=== PATIENT | female | born 1970 | race Caucasian/White ===

== ENCOUNTER 2019-07-23 09:49 | Emergency (ER) | payer MEDICAID, SELFPAY ==
--- NOTE | 2019-07-23 09:45 | DI.RAD_ITS ---
EXAM: XR CERVICAL SP LOVETT TRAUMA 2-3V CLINICAL HISTORY: Neck pain. TECHNIQUE: 2D digital imaging was performed. COMPARISON: No exams were available for comparison FINDINGS: BONES: No fracture or destructive lesion. Vertebral bodies are unremarkable. There are mild facet degenerative changes greatest at C6-7 and C7-T1. DISKS: Intervertebral disc spaces are maintained. ALIGNMENT: Cervical spinal alignment is within normal limits. The odontoid and atlantoaxial articulat ions are normal. SOFT TISSUE: Normal. The lung apices are clear. IMPRESSION: Mild degenerative changes. DATA REPOSITORY: RADIATION DOSE DELIVERED:
[2019-07-23 09:47] VITALS: BP 142/107; PULSE 94; RESP 20; TEMP 36.6; O2SAT 97
--- NOTE | 2019-07-23 09:57 | ED.GENADUL_ITS ---
Discharge Plan Disposition Patient Disposition: HOME Condition: Stable Discharge Details Chief Complaint: Nk/Back Pain Clinical Impression: Torticollis Primary Care Provider: Lilli Vaughn ED Provider: Naima Horton Home Meds and New Rx's Prescriptions: New baclofen 5 mg tablet 5 mg PO TID PRN (Reason: muscle spasm) Qty: 10 RF: 0 No Action ropinirole 12 mg Tablet Extended Release 24 Hr 12 mg PO .QHS RF: 0 Discharge Instructions Instructions: Spasmodic Torticollis (ED) Additional Instructions: Follow up with primary care provider in 3-5 days. Return to ED sooner if any worsening or concerns. Increase oral fluids. Apply ice, heat try massage and muscle relaxers as directed. You may take Tylenol or ibuprofen every 4-6 hours as needed. Referrals: Lilli Vaughn [Primary Care Provider] - Medical Decision Making 41-year-old female presents with left-sided lateral paraspinous neck tenderness. There is muscle spasm noted and pain with palpation. No midline tenderness. X-rays obtained which show degenerative changes in C6 and 7. Patient received ibuprofen 600 mg and Flexeril 10 mg p.o. in department. Also trans-dermal lidocaine patch was applied. Patient will be discharged with a diagnosis of torticollis at this time strict return instructions given and home care given. CLINICAL HISTORY: Neck pain. TECHNIQUE: 2D digital imaging was performed. COMPARISON: No exams were available for comparison FINDINGS: BONES: No fracture or destructive lesion. Vertebral bodies are unremarkable. There are mild facet degenerative changes greatest at C6-7 and C7-T1. DISKS: Intervertebral disc spaces are maintained. ALIGNMENT: Cervical spinal alignment is within normal limits. The odontoid and atlantoaxial articulations are normal. SOFT TISSUE: Normal. The lung apices are clear. IMPRESSION: Mild degenerative changes. HPI General Mode of arrival: EMS . Date/Time Provider Initiated Documentation: 07/23/19 09:51 . Limitations to Documentation: no limitations . Information obtained by: patient . HPI Narrative: 49-year-old female presents with left lateral posterior neck pain which occurred upon waking this morning. Patient is unable to turn her head to the left she does have tenderness to palpation on the lateral paraspinous. No midline cervical tenderness. Denies any trauma or falls. Denies any nausea vomiting diarrhea, no cough no chest pain. Related Data Home Medications Medication Instructions Recorded Confirmed baclofen 5 mg PO TID PRN #10 tab 07/23/19 ropinirole 12 mg PO .QHS 07/23/19 07/23/19 Previous Rx's Medication Instructions Recorded baclofen 5 mg PO TID PRN #10 tab 07/23/19 Allergies Allergy/AdvReac Type Severity Reaction Status Date / Time acetaminophen [From Percocet] AdvReac Nausea Unverified 07/23/19 09:52 ketorolac [From Toradol] AdvReac Nausea Unverified 07/23/19 09:52 oxycodone [From Percocet] AdvReac Nausea Unverified 07/23/19 09:52 General Stated Complaint: Nk/Back Pain ARON: 3 Review of Systems Narrative: Constitutional: Negative for weight loss, alert and oriented, well groomed, normal body habitus, appears uncomfortable. HEENT: Denies trauma, headaches, blurry vision, nasal discharge, sore throat, trouble swallowing. Reports lateral neck pain. Chest: Denies chest pain, palpitations, irregular rhythm, hypertension. Respiratory: Denies Shortness of breath, cough, hemoptysis. GI: Denies abdominal pain, nausea, vomiting, diarrhea, constipation. : Denies dysuria, hematuria, flank pain, rectal bleeding. Neuro: Denies dizziness, blurry vision, weakness, syncope, headache or facial numbness. Hematologic: Denies easy bruising, intolerance to heat or cold, hair loss. [facility] Social History Smoking/Tobacco Use Status: Current every day Tobacco Type: cigarettes Alcohol Intake: never Substance use type: does not use Exam Narrative Exam Narrative: Constitutional: Alert and oriented x3. Appears stated age. Normal body habitus. Head: Normocephalic, no trauma. Eyes: Pupils PERRLA, Red reflex noted, EOM's intact. Eyelids symmetrical without lesions, discharge, or swelling. ENT: Bilateral TM's WNL, External ear normal to inspection, no mastoid TTP, swelling, or erythema, Nasal turbinates WNL, no nasal discharge. Normal dentition, Posterior pharynx WNL, no exudate. Chest: RRR, Normal S1, S2, distal pulses intact. Resp: Lungs clear to auscultation bilaterally, no wheezes, rales, or rhonchi. Musculoskeletal: Normal gait, 5/5 strength to all four extremities. Paraspinous tenderness left lateral neck. Decreased rotation. No midline tenderness. Skin: No suspicious rashes or lesions. Capillary refill less than 2 sec. Neurologic: Cranial nerves II-XII intact. Alert and oriented x 3. DTR's intact. Hematologic/Lymphatic: No ecchymosis, no lymphadenopathy. Neck Neck: torticollis Course Vital Signs Vital signs: Vital Signs Temperature 36.6 C 07/23/19 09:47 Pulse 94 H 07/23/19 09:47 Respiratory Rate 07/23/19 09:47 Blood Pressure 142/107 H 07/23/19 09:47 Pulse Oximetry 97 07/23/19 09:47 Temperature 36.6 C 07/23/19 09:47 Temperature Source Skin 07/23/19 09:47 Pulse 94 H 07/23/19 09:47 Respiratory Rate 20 07/23/19 09:47 Blood Pressure 142/107 H 07/23/19 09:47 Pulse Oximetry 97 07/23/19 09:47 Oxygen Delivery Method Room Air 07/23/19 09:47 Oxygen Flow Rate 0 07/23/19 09:47 Pain Level 10 07/23/19 09:47
[2019-07-23] MEDS: Ibuprofen 600 MG TAB PO (10:00)
[2019-07-23] MEDS: Cyclobenzaprine 10 MG TAB PO (10:01)
[2019-07-23 10:54] VITALS: BP 117/75; PULSE 79; RESP 18; TEMP 36.9; O2SAT 94
[2019-07-23] MEDS: Lidocaine 5% Patch 1 PATCH TP (10:57)
[2019-07-23 11:02] VITALS: BP 117/75; PULSE 79; RESP 18; TEMP 36.9; O2SAT 94
== END 2019-07-23 11:19 | disposition home or self-care (01) ==
PROVIDERS: Emergency Provider Registered Nurse Emergency; PCP Nurse Practitioner
DX: M43.6 Torticollis (principal)
CPT/HCPCS: 99284; 72040

== ENCOUNTER 2019-12-11 10:59 | Outpatient (REF) | payer MEDICAID, SELFPAY ==
[2019-12-11 18:42] LABS: HCT 41.4 % (36.0-46.0); HGB 13.1 g/dL (11.2-15.7); MCH 30.3 pg (27.0-33.0); MCHC 31.6 % (32.0-36.0); MCV 95.8 fL (80-95); MPV 11.6 fL (8.0-11.0); Platelet Count 302 10^3/uL (130-400); RBC 4.32 10^6/uL (3.93-5.22); RDW 14.1 % (11.7-14.6); RDW-SD 49.8 fL; WBC 7.52 10^3/uL (4.4-10.8)
[2019-12-11 19:02] LABS: ALT 23 U/L (14-59); AST 11 U/L (15-37); Albumin 3.6 g/dL (3.4-5.0); Alkaline Phosphatase 108 U/L (46-116); Anion Gap 5.1 mmol/L (3-11); BUN 24 mg/dL (7-18); Bilirubin, Total 0.5 mg/dL (0.2-1.0); CO2 29.9 mmol/L (21.0-32.0); CREATININE 0.93 mg/dL (0.55-1.02); Calcium 9.3 mg/dL (8.5-10.1); Calculated LDL 119 mg/dL (<100); Chloride 106 mmol/L (98-107); Cholesterol 190 mg/dL (<200); Glucose 97 mg/dL (74-106); HDL Cholesterol 32 mg/dL (40-60); Potassium 4.7 mmol/L (3.5-5.1); Sodium 141 mmol/L (136-145); Total Protein 7.1 g/dL (6.4-8.2); Triglyceride 197 mg/dL (<150)
[2019-12-11 22:57] LABS: FREE T4 0.86 ng/dL (0.76-1.46)
== END 2019-12-11 11:19 ==
LOC: NCHCN 10:59
PROVIDERS: PCP Physician Assistant; Visit Provider Physician Assistant
DX: R60.0 Localized edema (principal); R03.0 Elevated blood-pressure reading, without diagnosis of hypertension; G62.9 Polyneuropathy, unspecified
CPT/HCPCS: 80053; 80061; 85027; 84439; 84443

== ENCOUNTER 2020-08-22 11:54 | Outpatient (REF) | payer MEDICAID, SELFPAY ==
[2020-08-22 16:27] LABS: Anion Gap 5.3 mmol/L (3-11); BUN 15 mg/dL (7-18); CO2 33.7 mmol/L (21.0-32.0); Calcium 9.2 mg/dL (8.5-10.1); Chloride 102 mmol/L (98-107); Estimated GFR 58.93 (mL/min/1.73m2); Glucose 105 mg/dL (74-106); Potassium 4.3 mmol/L (3.5-5.1); Sodium 141 mmol/L (136-145)
== END 2020-08-22 11:55 | disposition home or self-care (01) ==
LOC: NCHCN 11:54
PROVIDERS: PCP Physician Assistant; Visit Provider Physician Assistant
DX: R03.0 Elevated blood-pressure reading, without diagnosis of hypertension (principal)
CPT/HCPCS: 80048

== ENCOUNTER 2020-11-27 11:57 | Inpatient (IN) | payer MEDICAID, SELFPAY ==
[2020-11-27] VITALS (51 sets, daily range): BP systolic 51–140; BP diastolic 22–110; PULSE 60–114; RESP 10–22; TEMP 31–37.1; O2SAT 78–98
--- NOTE | 2020-11-27 12:00 | RT.EKG_ITS ---
APPROVED REPORT Exam: Resting ECG Reason for Exam: left arm numbness Patient Location: E HR:93 bpm ECG Measurements Heart Rate 93 AXIS MN 170 P 50 QRSd 82 QRS 46 QT 363 T -19 QTc 451 Conclusion Sinus rhythm...normal P axis, V-rate 60- 99 Low voltage, precordial leads...precordial leads <1.0mV
--- NOTE | 2020-11-27 12:00 | DI.CT_ITS ---
Exam(s) CT CHEST PE CTA EXAM: CT CHEST PE CTA CLINICAL HISTORY: , hypoxia. TECHNIQUE: Imaging Protocol: CT angiography of the chest was performed using pulmonary embolus tanya col. Multi planar reconstructions were performed. CONTRAST MATERIAL: Intravenous: Omnipaque 350 Contrast volume: 100 cc COMPARISON: No exams were available for comparison FINDINGS: CHEST: PULMONARY ARTERIES: There are extensive bilateral pulmonary emboli with intraluminal filling defects seen in the pulmonary arterial tree of all lobes of both lungs, this starting just distal to the main pulmonary arteries. LUNGS: There are patchy multifocal areas of infiltrate in both lung najera. No pleural effusions.. No focal findings in the trachea and mainstem bronchi. MEDIASTINUM: There is no hilar nor mediastinal adenopathy. Visualized thyroid unremarkable.Moderate s ize hiatal hernia noted. CARDIAC: Heart size is upper normal. There is no pericardial effusion.Caliber of the thoracic aorta is within normal limits. No obvious coronary artery calcification. There is no significant shift of the interventricular septum. PARTIALLY VISUALIZED UPPERMOST ABDOMEN: No obvious findings OSSEOUS: No significant osseous lesions.. IMPRESSION: 1. Extensive bilateral pulmonary emboli involving all lobes of both lungs..No obvious pulmonary infar ctions nor pleural effusions. No obvious right heart failure. 2. No intrathoracic adenopathy. Report called by myself to the emergency room physician 11/27/2020 1:20 p.m. RADIATION DOSE DELIVERED: 889.71mGy.cm Total DLP DATA REPOSITORY: All CT scans at this facility are submitted to the National Radiology Data Registry (NRDR) Dose Index Registry (DIR) with the [employer] (A[employer]). RADIATION OPTIMIZATION: All CT scans at this facility use at least one of these dose optimization te chniques: automated exposure control; mA and/or kV adjustment per patient size (includes targeted exa ms where dose is matched to clinical indication); or iterative reconstruction.
--- NOTE | 2020-11-27 12:13 | ED.GENADUL_ITS ---
Discharge Plan Discharge Details Chief Complaint: GenMedical Primary Care Provider: Dioni Lozada ED Provider: Juan Wing Home Meds and New Rx's Prescriptions: No Action cetirizine 10 mg tablet 10 mg DAILY RF: 0 spironolactone 25 mg tablet 25 mg DAILY RF: 0 omeprazole 20 mg capsule,delayed release(DR/EC) 20 mg DAILY RF: 0 pregabalin 300 mg capsule 300 mg BID RF: 0 ropinirole 12 mg Tablet Extended Release 24 Hr 12 mg PO .QHS RF: 0 baclofen 5 mg tablet 5 mg PO TID PRN (Reason: muscle spasm) Qty: 10 RF: 0 Medical Decision Making 50 yo female who is a chronic smoker, denies alcohol or drug use, comes in with a day of shortness of breath with cough and this morning has numbness in both hands. She started a pill for swelling aroud her left eye this week and has taken a few doses. She noticed the dyspnea yesterday and has been progressing so called ems. She states when she coughs she has anterior chest pain, no pain at rest and denies n/v, diaphoresis or radiation of the pain. Her left conjunctiva is erythematous with some discharge and the left upper eye lid is swollen, eomi without pain and no vision changes, consistent with likely conjunctivitis. She has normal range of motion of the extremities and soft touch is intact. She is noted to be 85% on room air on arrival, has diffuse wheezing on exam. Multiple different etiologies for her symptoms and hypoxia as well as dyspnea, will treat for possible copd with steroids and neb, and obtain ekg, troponin and cta to evaluate for PE and pneumonia and will obtain test for covid pt's bp now 115/67, labs remarkable for troponin of 0.[address] shows numerous PE. She remains hemodynamically stable at this time, heparin ordered, will discuss with hospitalist for admission Differential Diagnosis Differential Diagnosis: PE, copd, covid, pneumonia, conjunctivitis Imaging Data Radiologic Study: Attestation: I personally reviewed and interpreted this imaging study as follows: Imaging: CT Scan Radiologist's impression: Patient Name: Mary Lou Avina #: [id number]: ER Ordering Provider: Juan Wing M.D. : [facility] Primary Care Provider: Dioni LozadaDate of Exam: 11/27/20Sex: F : 1970Age: 50 Exam(s) a CT:CT chest PE CTA Exam(s) CT CHEST PE CTA EXAM: CT CHEST PE CTA CLINICAL HISTORY: , hypoxia. TECHNIQUE: Imaging Protocol: CT angiography of the chest was performed using pulmonary embolus protocol. Multi planar reconstructions were performed. CONTRAST MATERIAL: Intravenous: Omnipaque 350 Contrast volume: 100 cc COMPARISON: No exams were available for comparison FINDINGS: CHEST: PULMONARY ARTERIES: There are extensive bilateral pulmonary emboli with intraluminal filling defects seen in the pulmonary arterial tree of all lobes of both lungs, this starting just distal to the main pulmonary arteries. LUNGS: There are patchy multifocal areas of infiltrate in both lung najera. No pleural effusions.. No focal findings in the trachea and mainstem bronchi. MEDIASTINUM: There is no hilar nor mediastinal adenopathy. Visualized thyroid unremarkable.Moderate size hiatal hernia noted. CARDIAC: Heart size is upper normal. There is no pericardial effusion.Caliber of the thoracic aorta is within normal limits. No obvious coronary artery calcification. There is no significant shift of the interventricular septum. PARTIALLY VISUALIZED UPPERMOST ABDOMEN: No obvious findings OSSEOUS: No significant osseous lesions.. IMPRESSION: 1. Extensive bilateral pulmonary emboli involving all lobes of both lungs..No obvious pulmonary infarctions nor pleural effusions. No obvious right heart failure. 2. No intrathoracic adenopathy Lab Data Lab results reviewed: Yes I reviewed the patient's lab results. ECG Data Attestation: I personally reviewed and interpreted this ECG (s) as follows: Interpretation: sinus rhythm, rate of 93, no acute st t wave ischemic findings HPI General Mode of arrival: EMS . Date/Time Provider Initiated Documentation: 11/27/20 12:04 . Limitations to Documentation: no limitations . Information obtained by: patient . History of Present Illness 50 year old F presents to the emergency department with the chief complaint of shortness of breath, described as moderate, Patient started experiencing this day(s) (1) and it has been constant. No relieving factors improve symptom(s), No ex acerbating factors reported . Patient notes cough. Patient did receive the following treatments prior to arrival, other (nebulizer with ems) Related Data Home Medications Medication Instructions Recorded Confirmed baclofen 5 mg PO TID PRN #10 tab 07/23/19 11/27/20 ropinirole 12 mg PO .QHS 04/13/20 08/19/21 cetirizine 10 mg DAILY 11/27/20 11/27/20 omeprazole 20 mg DAILY 11/27/20 11/27/20 pregabalin 300 mg BID 11/27/20 11/27/20 spironolactone 25 mg DAILY 11/27/20 11/27/20 Previous Rx's Medication Instructions Recorded baclofen 5 mg PO TID PRN #10 tab 07/23/19 Allergies Allergy/AdvReac Type Severity Reaction Status Date / Time acetaminophen [From Percocet] AdvReac Nausea Unverified 11/27/20 12:06 ketorolac [From Toradol] AdvReac Nausea Unverified 11/27/20 12:06 oxycodone [From Percocet] AdvReac Nausea Unverified 11/27/20 12:06 General Stated Complaint: GenMedical ARON: 3 Review of Systems All systems reviewed & are unremarkable except as noted in HPI and below Constitutional Constitutional: Denies chills, Denies fever(s) and Denies weakness Gastrointestinal Gastrointestinal: Denies abdominal pain, Denies nausea and Denies vomiting Musculoskeletal Musculoskeletal: Denies joint swelling Neurologic Neurologic: Denies weakness [facility] Social History Smoking/Tobacco Use Status: Current every day Tobacco Type: cigarettes Smoking risk assessment performed?: Yes Alcohol Intake: never Drug use: Never Substance use type: does not use Do you feel safe at home: Yes Do you feel safe in your relationship?: Yes Exam Const General: no acute distress Orientation: alert HENMT Head: normal to inspection Ears: external ears normal General nose exam: external nose normal Mouth: moist mucous membranes Eyes Pupils: PERRL EOM: EOM intact bilaterally Neck Neck: normal visual inspection Resp Effort & Inspection: audible wheezes Cardio Rate: regular rate Skin General skin exam: elasticity normal Neuro General: patient alert and patient oriented x3 Extrem General: normal to inspection Psych Mental Status: mental status grossly normal Course Vital Signs Vital signs: Vital Signs Temperature 36.8 C 11/27/20 12:00 Pulse 96 H 11/27/20 12:00 Respiratory Rate 20 11/27/20 12:00 Blood Pressure 94/43 L 11/27/20 12:00 Pulse Oximetry 85 L 11/27/20 12:00 Temperature 36.8 C 11/27/20 12:00 Temperature Source Temporal Artery Scan 11/27/20 12:00 Pulse 96 H 11/27/20 12:00 Respiratory Rate 20 11/27/20 12:00 Respiratory Effort 11/27/20 12:07 Blood Pressure 94/43 L 11/27/20 12:00 Blood Pressure Position Sitting 11/27/20 12:00 Pulse Oximetry 92 11/27/20 12:04 Oxygen Delivery Method Nasal Cannula 11/27/20 12:04 Oxygen Flow Rate 3 11/27/20 12:04
[2020-11-27 12:43] LABS: BE (Venous) 1 mmol/L (-2-3); HCO3 (Venous) 28 mmol/L (23-28); O2 Sat (Venous) 45 %; TCO2 (Venous) 27 mmol/L (24-29); pH (Venous) 7.26 (7.31-7.41); pO2 (Venous) 31 mmHg
[2020-11-27 12:47] LABS: Source Nasal/Nares; pCO2 (Venous) 63 mmHg (41-51)
[2020-11-27 12:51] LABS: Abs Immature Grans 0.08 10^3/uL (0.0-0.06); Absolute Basophil Count 0.04 10^3/uL (0.0-0.2); Absolute Eosinophil Count 0.05 10^3/uL (0.0-0.7); Absolute Lymphocyte Count 1.45 10^3/uL (1.2-3.4); Absolute Monocyte Count 0.62 10^3/uL (0.1-0.8); Absolute Neutrophil Count 6.31 10^3/uL (1.2-6.7); Basophils % 0.5; Eosinophils % 0.6; HCT 33.9 % (36.0-46.0); HGB 9.8 g/dL (11.2-15.7); Immature Grans % 0.9; MCH 26.1 pg (27.0-33.0); MCHC 28.9 % (32.0-36.0); MCV 90.2 fL (80-95); Monocytes % 7.3; Neutrophils % 73.7; Nucleated RBC 0 %; Platelet Count 281 10^3/uL (130-400); RBC 3.76 10^6/uL (3.93-5.22); RDW 18.5 % (11.7-14.6); RDW-SD 61.1 fL; WBC 8.55 10^3/uL (4.4-10.8)
[2020-11-27] MEDS: Albuterol/Ipratropium 3 ML UPD VIAL UPD ×2 (13:10)
[2020-11-27] MEDS: Erythromycin Ophth Oint 3.5 GM TUBE OP (13:10)
[2020-11-27] MEDS: methylPREDNISolone SUCC 125 MG VIAL IVP (13:11)
[2020-11-27 13:13] LABS: ALT 109 U/L (14-59); AST 106 U/L (15-37); Albumin 3.2 g/dL (3.4-5.0); Alkaline Phosphatase 124 U/L (46-116); Anion Gap 8.3 mmol/L (3-11); BUN 26 mg/dL (7-18); Bilirubin, Total 0.8 mg/dL (0.2-1.0); CO2 29.7 mmol/L (21.0-32.0); CREATININE 2.5 mg/dL (0.55-1.02); Calcium 8.3 mg/dL (8.5-10.1); Chloride 101 mmol/L (98-107); Estimated GFR 20.47 (mL/min/1.73m2); Glucose 148 mg/dL (74-106); Magnesium 2.2 mg/dL (1.8-2.4); NT-proBNP 16739 pg/mL (<300); Potassium 4.4 mmol/L (3.5-5.1); Sodium 139 mmol/L (136-145); Total Protein 7.6 g/dL (6.4-8.2)
[2020-11-27 13:20] LABS: Troponin I 0.27 ng/mL (<0.06)
[2020-11-27 14:06] LABS: COVID-19 PCR Negative (Negative)
[2020-11-27 14:31] LABS: INR 1.1 (0.9-1.1); PTT Activated 26.2 sec (21.0-27.5); Prothrombin Time 11.3 sec (9.3-11.0)
[2020-11-27] MEDS: Normal Saline 1,000 ML 1000 ML IV (16:45)
--- NOTE | 2020-11-27 17:53 | W.PM.HP.N ---
Date of service: 11/27/20 Time of Service: 17:53 Assessment and Plan Assessment and plan (1) Bilateral pulmonary embolism: Status: Acute Assessment and plan: Patient has submassive bilateral multi lobar pulmonary emboli with evidence of right ventricular strain as evidenced by enlarged RV along with D-shaped deformity of the interventricular septum. No thrombus was seen intracardiac however I was unable to obtain all cardiac windows. In particular I could not get a good subcostal view and I had a limited apical view that primarily demonstrated the left atrium and left ventricle and interventricular septum with only part of the RV was seen. However I did parasternal long axis and parasternal short axis clearly the RV was enlarged and causing D-shaped deformity to the interventricular septum. This is consistent with RV pressure overload. I reviewed her case with Dr. Rainey, manager diversity/critical care medicine, who agreed that the patient is a candidate for limited TPA therapy because of the extensive nature of her pulmonary embolism causing respiratory embarrassment and RV strain. However after obtaining a negative CT scan of her head the patient came back and was very hypersomnolent and I could not keep her alert enough to obtain informed consent. This point patient will be maintained on unfractionated heparin. We will get a formal echocardiogram and formal venous duplex scan of her legs in the morning. Critical care time spent with the patient which included reviewing her labs and her CT scan and discussing her case with the ER department as well as interviewing the patient putting in orders and documentation was 2 hours outside the time spent performing POCUS (2) Right leg DVT: Status: Suspected Assessment and plan: Limited venous study of both legs was performed. Study was technically difficult due to her restless leg syndrome and problems with getting her to cooperate with holding her leg still. However there is noncompressibility of the right proximal femoral system. Qualifiers: Affected thrombotic vein of extremity: femoral Chronicity: acute Qualified Code(s): I82.411 - Acute embolism and thrombosis of right femoral vein (3) Sleep apnea: Status: Acute Assessment and plan: Patient demonstrates overt sleep apnea problems associated with transient hypoxemia. Patient was tried on BiPAP in the emergency department but had sustained hypotension probably due to the decreased venous return to her RV system. Qualifiers: Sleep apnea type: unspecified type Qualified Code(s): G47.30 - Sleep apnea, unspecified History of Present Illness History of Present Illness Chief Complaint: dyspnea Narrative: Patient is a 50-year-old female with morbid obesity and smoking history of 1/2 pack/day for the last 15 years who presented acute dyspnea with chest pain. Patient states that last night before she went to bed she was experiencing right hand and arm numbness and her boyfriend noticed that she was slurring her speech. Patient had not been consuming any alcohol and had not used any narcotic drugs although she is on a number of muscle relaxants and pregabalin and ropinirole chronically for restless leg syndrome and low back pain. Patient went to bed and awoke this morning with shortness of breath and nonproductive cough with no fever or chills. She presented to the emergency department via EMS because of progressive dyspnea throughout the day. On arrival to the emergency room her oxygen saturation was 85% on room air. ER began a work-up for possible COPD exacerbation versus pneumonia versus pulmonary embolus. CTA chest demonstrated bilateral multilobar PE beginning just distal to the main pulmonary arteries. Reportedly no pulmonary infarcts and no right heart strain. EKG demonstrated sinus rhythm 93 bpm w/ S1Q3T3 pattern and T wave inversion in right precordial leads V1-V3. Labs were pertinent for DAVEY (BUN 26, creatinine 2.5; baseline was normal at 15 and 1.0 in August); elevated troponin I 0.27 and elevated BNP 16,700. Transaminases are mildly elevated (AST 106, ALT 109, alkaline phos. 124 but normal bilirubin). CBC demonstrates anemia Hb 9.8 gm, normal WBC and platelets. Protime 11.3 w/ INR 1.1 and normal aptt 26. Patient was treated in the ER initially w/ DuoNebs and solumedrol and saline bolus. However when the CTA demonstrated bilateral PE, she was given UFH bolus 8000 units and begun on drip of 1800 units/hr. She was admitted to the MICU on oxygen at 10 lpm oxy mask but has required high flow nasal cannula at 45 LPM to maintain her SPO2 in the 88 to 91% range. Patient has demonstrated sleep apnea while in the ER w/ hypopnea and apneic spells. She was transiently put on BIPAP but when she dropped her SBP in the 50's to 70's she was taken off the BIPAP. That was when she was given the saline bolus of 1000 mL. Her BP since arrival to the MICU have been acceptable running low 100's to 110's. HR has been in the 80's sinus rhythm. Review of Systems Constitutional Constitutional: Denies headache(s) ENT Ears, Nose, Mouth, and Throat: Denies headache(s) Cardiovascular Cardiovascular: Reports as per HPI Respiratory Respiratory: Reports as per HPI Gastrointestinal Gastrointestinal: Reports system reviewed and no additional complaints, except as documented, Denies melena, Denies change in stool character, Denies diarrhea and Denies nausea Genitourinary Genitourinary: Reports system reviewed and no additional complaints, except as documented Musculoskeletal Musculoskeletal: Reports numbness (Left hand and forearm) and Reports tingling Integumentary/Breasts Skin/Breast: Reports system reviewed and no additional complaints, except as documented Neurologic Neurologic: Reports abnormal speech, Denies headache(s), Reports numbness (Left hand and forearm), Reports tingling and Reports paresthesias (Chronic numbness in her toes in the bottoms of her feet) Psychiatric Psychiatric: Reports depression Endocrine Endocrine: Reports system reviewed and no additional complaints, except as documented Hematologic/Lymphatic Hematologic/Lymphatic: Reports system reviewed and no additional complaints, except as documented and Denies easy bleeding Allergic/Immunologic Allergic/Immunologic: Reports system reviewed and no additional complaints, except as documented PFSH Medical History Chronic low back pain Peripheral neuropathy Restless leg syndrome Smoking addiction currently 1/2 ppd; total of 12 to 15 yrs Surgical History (Updated 11/27/20 @ 21:02 by Arun Barrett) S/P knee surgery patient has had multiple bilateral knee surgeries; 12 in total S/P tubal ligation Status post total right knee replacement Social History (Updated 11/27/20 @ 21:02 by Arun Barrett) Smoking/Tobacco Use Status: Current every day Tobacco Type: cigarettes Smoking packs per day: 0.5 Smoking cigarettes per day: 10.0 Years smoked: 15 Smoking pack-years: 7.50 Smoking risk assessment performed?: Yes Alcohol Intake: never Drug use: Never Substance use type: does not use Household members: significant other Do you feel safe at home: Yes Do you feel safe in your relationship?: Yes Meds Allergies and Home Medications Allergies Allergy/AdvReac Type Severity Reaction Status Date / Time acetaminophen [From Percocet] AdvReac Nausea Unverified 11/27/20 12:06 ketorolac [From Toradol] AdvReac Nausea Unverified 11/27/20 12:06 oxycodone [From Percocet] AdvReac Nausea Unverified 11/27/20 12:06 Home Medications Medication Instructions Recorded Confirmed Type baclofen 5 mg PO TID PRN #10 tab 07/23/19 11/27/20 Rx ropinirole 12 mg PO .QHS 07/23/19 11/27/20 History cetirizine 10 mg DAILY 11/27/20 11/27/20 History omeprazole 20 mg DAILY 11/27/20 11/27/20 History pregabalin 300 mg BID 11/27/20 11/27/20 History spironolactone 25 mg DAILY 11/27/20 11/27/20 History Exam Narrative Exam Narrative: Morbidly obese female who on arrival to the intensive care unit was alert and oriented person place time circumstance. She is now become hypersomnolent with frequent hypopnea and apneic spells. HEENT is unremarkable no noticeable epistaxis normal oropharyngeal bleeding. Neck is supple nontender difficult to discern JVD due to morbidly obese short neck. Normal carotid pulses Lungs with bibasilar rales no rhonchi or wheezing Heart is regular with distant heart tones no murmur rub Abdomen obese soft and nontender with normal active bowel sounds no palpable masses no bruits Lower extremities markedly obese no obvious calf tenderness or swelling normal pedal pulses Neurologic: No facial asymmetry no dysarthric speech. She has normal range of motion and strength in both upper and lower extremities. Sensory exam intact of her face both legs and her right arm but her left forearm and hand she reportedly has decreased sensation to light touch but intact to noxious stimuli. Normal handgrip strength and normal strength in her arms and legs. She has restless legs with constant kicking of her right leg. Rectal exam reveals normal sphincter tone with light brown stool negative for occult blood. Skin she has tinea underneath her breasts in both groin. Results Imaging CT scan - chest: report reviewed and image reviewed EKG: image reviewed Labs Result diagrams: 11/27/20 12:25 11/27/20 12:25 Labs: Laboratory Results - last 24 hr 11/27/20 11/27/20 11/27/20 12:25 12:25 12:25 WBC 8.55 RBC 3.76 L Hgb 9.8 L Hct 33.9 L MCV 90.2 MCH 26.1 L MCHC 28.9 L RDW 18.5 H Plt Count 281 MPV 11.0 Immature Gran % 0.9 Neutrophils % 73.7 Lymphocytes % 17.0 Monocytes % 7.3 Eosinophils % 0.6 Basophils % 0.5 Nucleated RBC % 0 Absolute Neutrophils 6.31 Absolute Lymphocytes 1.45 Absolute Monocytes 0.62 Absolute Eosinophils 0.05 Absolute Basophils 0.04 PT INR APTT VBG pH 7.26 L VBG pCO2 63 H* VBG pO2 31 VBG HCO3 28 VBG Total CO2 27 VBG O2 Saturation 45 VBG Base Excess 1 Sodium Potassium Chloride Carbon Dioxide Anion Gap BUN Creatinine Estimated GFR/1.73 m2 Glucose Calcium Magnesium Total Bilirubin AST ALT Alkaline Phosphatase Troponin I NT-Pro-B Natriuret Pep Total Protein Albumin COVID-19 Source Nasal/Nares SARS-CoV-2 (PCR) Negative 11/27/20 11/27/20 12:25 12:25 WBC RBC Hgb Hct MCV MCH MCHC RDW Plt Count MPV Immature Gran % Neutrophils % Lymphocytes % Monocytes % Eosinophils % Basophils % Nucleated RBC % Absolute Neutrophils Absolute Lymphocytes Absolute Monocytes Absolute Eosinophils Absolute Basophils PT 11.3 H INR 1.1 APTT 26.2 VBG pH VBG pCO2 VBG pO2 VBG HCO3 VBG Total CO2 VBG O2 Saturation VBG Base Excess Sodium 139 Potassium 4.4 Chloride 101 Carbon Dioxide 29.7 Anion Gap 8.3 BUN 26 H Creatinine 2.5 H Estimated GFR/1.73 m2 20.47 Glucose 148 H Calcium 8.3 L Magnesium 2.2 Total Bilirubin 0.8 AST 106 H ALT 109 H Alkaline Phosphatase 124 H Troponin I 0.27 H* NT-Pro-B Natriuret Pep 85080 H Total Protein 7.6 Albumin 3.2 L COVID-19 Source SARS-CoV-2 (PCR) Last Vital Signs Temp 36.8 C 11/27/20 16:50 Pulse 79 11/27/20 16:50 Resp 12 11/27/20 16:50 BP 91/68 L 11/27/20 16:50 Pulse Ox 91 L 11/27/20 16:50
[2020-11-27] MEDS: Normal Saline 1,000 ML 30 ML IV (19:15)
[2020-11-27] MEDS: rOPINIRole 0.5 MG TAB 3 MG PO (19:32)
--- NOTE | 2020-11-27 20:51 | DI.CT_ITS ---
Exam(s) CT HEAD - STROKE PROTOCOL EXAM: CT HEAD - STROKE PROTOCOL CLINICAL HISTORY: acute paresthesias r/o CVA. TECHNIQUE: Imaging Protocol: Axial computed tomography images with coronal and sagittal reformatted images were created and reviewed COMPARISON: MR MRI - BRAIN WO CONTRAST from 02/28/2013 MR MRI - BRAIN WO CONTRAST from 02/28/2013 FINDINGS: Ventricles and Extra axial spaces: Normal in size and morphology for the patient's age. Hemorrhage: None. Cerebral parenchyma: Normal. Midline shift: None. Brainstem/Cerebellum: Normal. Calvarium: Normal. Visualized Paranasal sinuses/Mastoids: Mild mucosal thickening in frontal sinuses and ethmoid air nicolás ls. The remaining visualized paranasal sinuses and mastoid air cells are clear. Soft Tissues: Mild soft tissue thickening in the left periorbital region. Please correlate with phys ical exam. IMPRESSION: 1. No acute intracranial process. 2. Mild frontal ethmoid air cell sinusitis. 3. Mild soft tissue thickening in the left periorbital region. Please correlate with physical exam. RADIATION DOSE DELIVERED: 967.56mGy.cm Total DLP DATA REPOSITORY: All CT scans at this facility are submitted to the National Radiology Data Registry (NRDR) Dose Index Registry (DIR) with the [employer] ([employer]). RADIATION OPTIMIZATION: All CT scans at this facility use at least one of these dose optimization te chniques: automated exposure control; mA and/or kV adjustment per patient size (includes targeted exa ms where dose is matched to clinical indication); or iterative reconstruction.
--- NOTE | 2020-11-27 21:04 | DI.VRAD_ITS ---
PROCEDURE INFORMATION: Exam: CT Head Without Contrast Exam date and time: 11/27/2020 7:43 PM Age: 50 years old Clinical indication: Pain; Headache not specified; Patient HX: Acute parestesias, R/O CVA TECHNIQUE: Imaging protocol: Computed tomography of the head without contrast. Radiation optimization: All CT scans at this facility use at least one of these dose optimization techniques: automated exposure control; mA and/or kV adjustment per patient size (includes targeted exams where dose is matched to clinical indication); or iterative reconstruction. Other technique: STROKE PROTOCOL was implemented. COMPARISON: CR XR CERVICAL SP LOVETT TRAUMA 2-3V 07/23/2019 10:14 AM FINDINGS: Brain: Normal. No hemorrhage. Unremarkable white matter. No mass effect. Cerebral ventricles: No ventriculomegaly. Paranasal sinuses: Mucosal thickening in the frontal sinus and ethmoid air cells consistent with sinusitis. Mastoid air cells: Visualized mastoid air cells are well aerated. Bones/joints: Unremarkable. No acute fracture. Soft tissues: Unremarkable. IMPRESSION: Mild frontal and ethmoid sinusitis. No acute infarct or acute intracranial hemorrhage. ASSESSMENT: ASPECTS (Latonya Stroke Program Early CT Score) is 10. Dictated and Authenticated by: Lisette Ruiz MD. Ordering:[facility] Arnold Dias MD
[2020-11-27 21:37] LABS: Lactate 1.4 mmol/L (0.6-1.4)
--- NOTE | 2020-11-27 21:41 | NUR.NOTE ---
Nursing Note: Pt taken down for stat CT Head with RT by stretcher bed with all required equipments at 20:40H and came back to ICU at 21:10H.
[2020-11-27] MEDS: Pantoprazole 40 MG VIAL IVP (21:54)
[2020-11-27 22:09] LABS: Troponin I 0.36 ng/mL (<0.06)
[2020-11-28] VITALS (107 sets, daily range): BP systolic 67–140; BP diastolic 27–106; PULSE 66–194; RESP 4–22; TEMP 31–37.1; O2SAT 83–100
[2020-11-28 05:10] LABS: Abs Immature Grans 0.12 10^3/uL (0.0-0.06); Absolute Basophil Count 0.02 10^3/uL (0.0-0.2); Absolute Lymphocyte Count 0.97 10^3/uL (1.2-3.4); Absolute Monocyte Count 0.53 10^3/uL (0.1-0.8); Absolute Neutrophil Count 8.58 10^3/uL (1.2-6.7); Basophils % 0.2; HCT 33.7 % (36.0-46.0); HGB 9.7 g/dL (11.2-15.7); Immature Grans % 1.2; Lymphocytes % 9.5; MCH 25.9 pg (27.0-33.0); MCHC 28.8 % (32.0-36.0); MCV 89.9 fL (80-95); MPV 10.6 fL (8.0-11.0); Monocytes % 5.2; Neutrophils % 83.9; Nucleated RBC 0 %; Platelet Count 281 10^3/uL (130-400); RBC 3.75 10^6/uL (3.93-5.22); RDW 18.3 % (11.7-14.6); WBC 10.22 10^3/uL (4.4-10.8)
[2020-11-28 05:25] LABS: ALT 120 U/L (14-59); AST 88 U/L (15-37); Albumin 3.1 g/dL (3.4-5.0); Alkaline Phosphatase 118 U/L (46-116); Anion Gap 6.1 mmol/L (3-11); BUN 21 mg/dL (7-18); Bilirubin, Total 0.5 mg/dL (0.2-1.0); CO2 28.9 mmol/L (21.0-32.0); Calcium 8.4 mg/dL (8.5-10.1); Chloride 106 mmol/L (98-107); Glucose 171 mg/dL (74-106); Sodium 141 mmol/L (136-145); Total Protein 7.4 g/dL (6.4-8.2)
[2020-11-28 05:30] LABS: Troponin I 0.34 ng/mL (<0.06)
[2020-11-28 05:31] LABS: Estimated GFR 39.97 (mL/min/1.73m2)
[2020-11-28 05:35] LABS: CREATININE 1.4 mg/dL (0.55-1.02)
[2020-11-28 05:47] LABS: PTT Activated 52.8 sec (21.0-27.5)
--- NOTE | 2020-11-28 07:07 | PUCC_ITS ---
General Date of Service Date of service: 11/28/20 Time of Service: 07:30 Reason for Admission to ICU: Pulmonary Embolism Assessment and Plan Assessment and plan (1) Bilateral pulmonary embolism: Status: Acute (2) Sleep apnea: Status: Acute Qualifiers: Sleep apnea type: unspecified type Qualified Code(s): G47.30 - Sleep apnea, unspecified (3) Cigarette nicotine dependence: Status: Acute Qualifiers: Substance use status: uncomplicated Qualified Code(s): F17.210 - Nicotine dependence, cigarettes, uncomplicated (4) Right ventricular dysfunction: Status: Acute (5) Volume overload: Status: Acute Qualifiers: Hypervolemia type: unspecified Qualified Code(s): E87.70 - Fluid overload, unspecified (6) Anemia: Status: Chronic Qualifiers: Anemia type: unspecified type Qualified Code(s): D64.9 - Anemia, unspecified (7) Respiratory failure with hypoxia and hypercapnia: Status: Acute Qualifiers: Chronicity: acute Qualified Code(s): J96.01 - Acute respiratory failure with hypoxia; J96.02 - Acute respiratory failure with hypercapnia (8) DAVEY (acute kidney injury): Status: Acute (9) Transaminitis: Status: Acute (10) Wheezing: Status: Acute Assessment and plan: This is a 50-year-old female admitted to the ICU with hypoxic and hypercapnic respiratory failure in the setting of an intermediate high pulmonary embolism that does not seem to be provoked. There was question of whether she should receive lytic therapy last night however given my assessment today I do not think that this is required. I suspect a lot of her right ventricular abnormalities seen on bedside POCUS are chronic in the setting of smoking with likely COPD as well as untreated JON. On my assessment she appears to be volume overloaded in addition to having an appropriate preload based on my bedside POCUS. Recommendations Pulmonary: Acute hypoxic respiratory failure with likely acute on chronic hyp ercapnic respiratory failure - continue HFNC for sats >90% - recommend patient get out of bed to chair - recommend I.S. and VibraPEP JON, likely with OHS Patient has refused therapy in the past with CPAP due to not willing to wear the mask at night - outpatient sleep medicine referral Nictotine Dependance - nicotine patches and referral to [facility] for smoking cessation if amenable Wheezing Concern for COPD given significant smoking history - recommend DuoNebs 4 times daily - I will set her up to see me as an outpatient Cardiac: Likely acute on Chronic RV dysfunction I suspect she has some degree of chronic right-sided heart failure due to her smoking as well as untreated sleep apnea. Certainly her acute pulmonary embolism is worsening her RV dysfunction as exemplified by her elevated troponin as well as elevated BNP. My evaluation of her POCUS that I performed this morning is that the majority of her dysfunction appears to be chronic in nature - discontinue fluids - formal TTE when available - again I will set her up as an outpatient and repeat a TTE in 3 months (I will place this order) - no need to trend troponins in setting of PE - typically an initial trop is just used to help classify risk Renal: DAVEY, improving This is in the setting of hypoxia and hypotension. Her kidney function is improving quickly so it is likely that this is simply prerenal in nature. - discontinue fluids - strict I&O's I&O: Intake & Output 11/25/20 11/26/20 11/27/20 11/28/20 23:59 23:59 23:59 23:59 Intake Total 1247 / 1247 103.916 / 103.916 Output Total 600 / 600 700 / 700 Balance 647 / 647 -596.084 / -596.084 Weight 124.738 kg Daily Fluid Goal:: even to -500cc GI Nutrition: Transaminitis Again this is in the setting of hypoxia as well as some transient hypotension. LFTs are already quickly improving. No concern at this time. Diet - ok to eat from my perspective Date of Last Bowel Movement: 11/25/20 Infectious Disease: Multifocal Pulmonary Infiltrates Overall these infiltrates appear to be infectious in etiology however there is one infiltrate in the right lower lobe that could represent infarction however my suspicion is that this is more likely to inflammation or infection. Does not have any prodromal symptoms for pneumonia however given her acute clinical status and requiring high flow nasal cannula we should treat for a community- acquired pneumonia. - recommend ceftriaxone and azithromycin for 5 days Hematologic: Intermediate-high risk bilateral pulmonary embolism There is no months of consciousness or shock present but there is laboratory signs of right heart strain that would classify her as having high risk intermediate PE. As above a discussion for potential lytic therapy should be considered in this patient population. If she were to receive lytic therapy in this population half dose lytics (50 mg) or catheter directed thrombolysis would be appropriate options. Given that her lactate was normal and her post POCUS this morning seemed to be more consistent with a chronic right-sided heart failure I do not believe she warrants lytic therapy at this time. - continue heparin gtt for now while acutely ill, once improved can be switched to an oral agent - would recommend life long anti-coagulation - her obesity may result in underdosing if using a DOAC however an agent such as apixaban could still be used as long as a peak and trough anti-factor Xa levels were obtained. The other option is to start her on warfarin. - f/u official DVT study Normocytic anemia - no acute concern, but will monitor given A/C Neurologic: Transient confusion - likely related to CO2 retention in the setting of untreated JON/OHA Endocrine: No acute concern Lines: PIV Rodriguez Prophylaxis: On heparin gtt GI ppx not indicated at this time - would discontinue ( can be switched to home PO omeprazole) I spent a total of 60 minutes with this patient. This time includes assessment at the bedside, POCUS examination, chart review and documentation as well as coordination of care. Code Status: Resuscitation Status Full Code Subjective Critical and life-threatening events over the past 24 hours: I was called on 11/27/2020 in the evening by Dr. Monroe to discuss her case in the possible indications for lysis. I was able to pull up her imaging last night that showed bilateral proximally located clot but without saddle embolus. On the CAT scan there was some evidence of increased right-sided heart pressures due to an enlarged RV as well as some mild contrast reflux into the IVC. Her BNP as well as Trop was elevated and Dr. Barrett believed that she had evidence of right heart strain on his bedside POCUS. Given the story and all of these findings she falls into an intermediate high risk pulmonary embolism patient and so I recommended to him to administer half dose lytics (50 mg) for this reason. I was later informed that she was quite somnolent due to her untreated obstructive sleep apnea and was unable to consent to this medication and so it was not performed. This morning she was awake and conversant and having her lower extremity duplex performed. She is on high flow and saturating well. She is a smoker of approximately 1 pack/day. She is not on oral contraceptive pills. Tells me that she is up-to-date with her age-specific cancer screening. she did not have any recent surgery or travel and denies any increase in a sedentary state compared to her normal life. It does not appear as though she has any provoking factor for her pulmonary embolism. She is otherwise feeling well and is hungry. Exam Narrative Exam Narrative: Bedside POCUS 11/28/20 All views well visualized except for apical 4 due to air in the way. Left ventricle seems to have normal function with no areas of hypokinesis. The right ventricle does appear to be enlarged however there is no D sign or sign of acute right-sided failure. The IVC is normal in size however does not collapse with inspiration. I did not see a clot in transit. Const General: no acute distress Nutritional Appearance: obese HENMT Head: normocephalic Ears: external ears normal General nose exam: nasal mucous membranes and turbinates normal Face and sinus: sinuses nontender Mouth: oropharynx normal and moist mucous membranes Eyes General: appearance normal, both eyes and all related structures Pupils: PERRL Neck Neck: normal visual inspection and no lymphadenopathy Chest Chest: normal inspection of the chest Resp Effort & Inspection: normal respiratory effort Auscultation: no rales, no rhonchi and wheezes (diffuse and bilateral) expiratory wheezes Cardio Rate: regular rate Rhythm: regular rhythm Heart Sounds: S1 normal, S2 normal and no murmurs Pulses: radial pulses present bilaterally GI Inspection: normal to inspection Palpation: soft Skin General skin exam: no rashes or lesions noted Neuro General: patient alert, patient awake and patient oriented x3 Extrem General: no clubbing, no cyanosis and edema (to shins) Laterality: bilateral Psych Mental Status: mental status grossly normal Affect: normal affect Attitude: cooperative Most Recent VS/Results Last Vital Signs Temp 37.1 C 11/28/20 03:49 Pulse 78 11/28/20 05:02 Resp 12 11/28/20 05:02 BP 115/96 H 11/28/20 05:02 Pulse Ox 96 11/28/20 05:02 Laboratory Results - last 24 hr 11/27/20 11/27/20 11/27/20 12:25 12:25 12:25 WBC 8.55 RBC 3.76 L Hgb 9.8 L Hct 33.9 L MCV 90.2 MCH 26.1 L MCHC 28.9 L RDW 18.5 H Plt Count 281 MPV 11.0 Immature Gran % 0.9 Neutrophils % 73.7 Lymphocytes % 17.0 Monocytes % 7.3 Eosinophils % 0.6 Basophils % 0.5 Nucleated RBC % 0 Absolute Neutrophils 6.31 Absolute Lymphocytes 1.45 Absolute Monocytes 0.62 Absolute Eosinophils 0.05 Absolute Basophils 0.04 PT INR APTT VBG pH 7.26 L VBG pCO2 63 H* VBG pO2 31 VBG HCO3 28 VBG Total CO2 27 VBG O2 Saturation 45 VBG Base Excess 1 VBG Lactate Sodium Potassium Chloride Carbon Dioxide Anion Gap BUN Creatinine Estimated GFR/1.73 m2 Glucose Calcium Magnesium Total Bilirubin AST ALT Alkaline Phosphatase Troponin I NT-Pro-B Natriuret Pep Total Protein Albumin COVID-19 Source Nasal/Nares SARS-CoV-2 (PCR) Negative Patient ABO/Rh Antibody Screen 11/27/20 11/27/20 11/27/20 12:25 12:25 15:11 WBC RBC Hgb Hct MCV MCH MCHC RDW Plt Count MPV Immature Gran % Neutrophils % Lymphocytes % Monocytes % Eosinophils % Basophils % Nucleated RBC % Absolute Neutrophils Absolute Lymphocytes Absolute Monocytes Absolute Eosinophils Absolute Basophils PT 11.3 H INR 1.1 APTT 26.2 VBG pH VBG pCO2 VBG pO2 VBG HCO3 VBG Total CO2 VBG O2 Saturation VBG Base Excess VBG Lactate Sodium 139 Potassium 4.4 Chloride 101 Carbon Dioxide 29.7 Anion Gap 8.3 BUN 26 H Creatinine 2.5 H Estimated GFR/1.73 m2 20.47 Glucose 148 H Calcium 8.3 L Magnesium 2.2 Total Bilirubin 0.8 AST 106 H ALT 109 H Alkaline Phosphatase 124 H Troponin I 0.27 H* Cancelled NT-Pro-B Natriuret Pep 43023 H Total Protein 7.6 Albumin 3.2 L COVID-19 Source SARS-CoV-2 (PCR) Patient ABO/Rh Antibody Screen 11/27/20 11/27/20 11/27/20 21:30 21:30 21:30 WBC RBC Hgb Hct MCV MCH MCHC RDW Plt Count MPV Immature Gran % Neutrophils % Lymphocytes % Monocytes % Eosinophils % Basophils % Nucleated RBC % Absolute Neutrophils Absolute Lymphocytes Absolute Monocytes Absolute Eosinophils Absolute Basophils PT INR APTT VBG pH VBG pCO2 VBG pO2 VBG HCO3 VBG Total CO2 VBG O2 Saturation VBG Base Excess VBG Lactate 1.4 Sodium Potassium Chloride Carbon Dioxide Anion Gap BUN Creatinine Estimated GFR/1.73 m2 Glucose Calcium Magnesium Total Bilirubin AST ALT Alkaline Phosphatase Troponin I 0.36 H* NT-Pro-B Natriuret Pep Total Protein Albumin COVID-19 Source SARS-CoV-2 (PCR) Patient ABO/Rh A Positive Antibody Screen NEGATIVE 11/27/20 11/28/20 11/28/20 21:50 05:00 05:00 WBC RBC Hgb Hct MCV MCH MCHC RDW Plt Count MPV Immature Gran % Neutrophils % Lymphocytes % Monocytes % Eosinophils % Basophils % Nucleated RBC % Absolute Neutrophils Absolute Lymphocytes Absolute Monocytes Absolute Eosinophils Absolute Basophils PT INR APTT 84.0 H* D 52.8 H D VBG pH VBG pCO2 VBG pO2 VBG HCO3 VBG Total CO2 VBG O2 Saturation VBG Base Excess VBG Lactate Sodium Potassium Chloride Carbon Dioxide Anion Gap BUN Creatinine Estimated GFR/1.73 m2 Glucose Calcium Magnesium Total Bilirubin AST ALT Alkaline Phosphatase Troponin I 0.34 H* NT-Pro-B Natriuret Pep Total Protein Albumin COVID-19 Source SARS-CoV-2 (PCR) Patient ABO/Rh Antibody Screen 11/28/20 11/28/20 05:00 05:00 WBC 10.22 RBC 3.75 L Hgb 9.7 L Hct 33.7 L MCV 89.9 MCH 25.9 L MCHC 28.8 L RDW 18.3 H Plt Count 281 MPV 10.6 Immature Gran % 1.2 Neutrophils % 83.9 Lymphocytes % 9.5 Monocytes % 5.2 Eosinophils % 0.0 Basophils % 0.2 Nucleated RBC % 0 Absolute Neutrophils 8.58 H Absolute Lymphocytes 0.97 L Absolute Monocytes 0.53 Absolute Eosinophils 0.00 Absolute Basophils 0.02 PT INR APTT VBG pH VBG pCO2 VBG pO2 VBG HCO3 VBG Total CO2 VBG O2 Saturation VBG Base Excess VBG Lactate Sodium 141 Potassium 5.0 Chloride 106 Carbon Dioxide 28.9 Anion Gap 6.1 BUN 21 H Creatinine 1.4 H D Estimated GFR/1.73 m2 39.97 Glucose 171 H Calcium 8.4 L Magnesium Total Bilirubin 0.5 AST 88 H ALT 120 H Alkaline Phosphatase 118 H Troponin I NT-Pro-B Natriuret Pep Total Protein 7.4 Albumin 3.1 L COVID-19 Source SARS-CoV-2 (PCR) Patient ABO/Rh Antibody Screen Review of Systems All systems reviewed & are unremarkable except as noted in HPI and below Constitutional Constitutional: Reports daytime sleepiness, Reports fatigue and Reports stops breathing during sleep ENT Ears, Nose, Mouth, and Throat: Denies nasal congestion, Denies nasal discharge, Denies nasal obstruction, Denies sinus pain, Denies sinus pressure and Denies sore throat Cardiovascular Cardiovascular: Reports dyspnea, Reports dyspnea on exertion and Reports orthopnea Respiratory Respiratory: Reports dyspnea, Reports dyspnea on exertion and Denies wheezing Gastrointestinal Gastrointestinal: Denies nausea and Denies vomiting Endocrine Endocrine: Reports fatigue Allergic/Immunologic Allergic/Immunologic: Denies wheezing
--- NOTE | 2020-11-28 08:00 | DI.US_ITS ---
Exam(s) US ABDOMEN RENAL EXAM: US ABDOMEN RENAL CLINICAL HISTORY: incr. LFT, PE; r/o hepatic thrombosis TECHNIQUE: Ultrasound abdomen performed using standard protocol. COMPARISON: No exams were available for comparison FINDINGS: Examination limited by patient body habitus. ABDOMINAL AORTA AND IVC: Visualized portions normal caliber. PANCREAS: Normal where visualized. LIVER: Diffuse increased echogenicity consistent with fatty infiltration. The liver measures 20 cm i n length. Hepatopedal flow in the Portal Vein. GALLBLADDER: Cholelithiasis. No evidence of wall thickening. No pericholecystic fluid identified. BILIARY SYSTEM: Common bile duct measures < 7 mm. No intrahepatic biliary ductal dilation. KENYON'S SIGN: Negative. SPLEEN: Not enlarged. ASCITES: None seen. Renal size in cm: Right: 10.7. Left: 9.8. Echogenicity: Normal. Hydronephrosis: No. Cyst or mass: No. Nephrolithiasis: No. Other findings: None. Bladder:The bladder was empty and could not be evaluated sonographically. Renal color flow: Symmetric and within normal limits. IMPRESSION: 1. Hepatomegaly and hepatic steatosis. 2. Cholelithiasis. No biliary ductal dilatation. 3. No evidence of hydronephrosis or nephrolithiasis. 4. Examination limited by patient body habitus. 5. The bladder was empty and could not be evaluated sonographically. DATA REPOSITORY:
[2020-11-28] MEDS: Normal Saline Flush 10 ML SYR IVP ×3 (08:44→20:32)
[2020-11-28] MEDS: Pantoprazole 40 MG VIAL IVP ×2 (08:48→20:32)
[2020-11-28] MEDS: cefTRIAXone 2 GM/50 ML BAG IVPB (10:32)
--- NOTE | 2020-11-28 11:29 | PDOC.CMIN ---
- If Service Date Differs Date of service: 11/28/20 Time of Service: 11:29 Care Management Initial Assess REASON FOR HOSPITALIZATION:: Bilateral PE PAST MEDICAL HISTORY/PAST SURGICAL HISTORY:: Medical History. Chronic low back pain. Peripheral neuropathy. Restless leg syndrome. Smoking addiction. currently 1/2 ppd; total of 12 to 15 yrs. Surgical History (Updated 11/27/20 @ 21:02 by Arun Barrett). S/P knee surgery. patient has had multiple bilateral knee surgeries; 12 in total. S/P tubal ligation. Status post total right knee replacement PREVIOUS FUNCTIONAL STATUS/SOCIAL/FAMILY SUPPORTS:: Stephanie lives in an apartment in [place] with her boyfriend Jose. She stated that she has 4 children but no grandchildren. Stephanie is unemployed and states that she receives only $56/month in general assistance and food stamps. She is independent with her care and ADLs but does not drive. CURRENT FUNCTIONAL STATUS:: Stephanie was lying in bed in the ICU when CM met with her. She appeared alert and oriented and cooperated with questioning. Stephanie stated that she does not receive any income. She denied being on disability and does not work. As she is quite ill, CM deferred further conversation. CM will follow up when she is more stable to determine what her needs are and evaluate available resources to meet those needs. ADVANCE DIRECTIVES:: none on file Has patient been provided with info about the portal/API?: Yes Did the patient sign up for the portal?: No CODE STATUS:: Full Code INSURANCE COVERAGE / FINANCIAL ISSUES:: Medicaid CURRENT HOME/COMMUNITY SERVICES/EQUIPMENT:: food stamps and general assistance PRIMARY CARE PHYSICIAN:: Dioni Lozada POTENTIAL DISCHARGE NEEDS:: Follow up with PCP and plan of care PATIENT/FAMILY EDUCATION NEEDS:: Review of discharge instructions, medications, follow up plan, activity, limitations, Ask me Three TRANSPORTATION:: via private vehicle PLAN:: Stephanie will likley be discharged home. her resource needs are unclear at this time. She will follow up with her PCP and plan of care and transport with family or friends. CM will continue to support Stephanie and assess for discharge planning needs.
[2020-11-28] MEDS: DOXYCYCLINE 100 MG in Normal Saline 100 ML IVPB ×2 (11:46→21:26)
--- NOTE | 2020-11-28 12:34 | PGE_ITS ---
Date of Service Date of service: 11/28/20 Time of Service: 12:34 Assessment and Plan Assessment and plan (1) Bilateral pulmonary embolism: Status: Acute Assessment and plan: submassive bilateral PE. Patient not given thrombolytics last night d/t lack of informed consent d/t her somnolent state. At this time she does not seem to need this. Per my discussion w/ Dr. Voss (who performed bedside POCUS echo), she feels that the changes in her RV, i.e. enlargement and RV strain are chronic d/t patient's JON. At present time patient will receive heparin for 48 hr then transition to warfarin or a DOAC if her renal function recovers adequately (2) Bronchospasm, acute: Status: Acute Assessment and plan: probably d/t underlying COPD/smoking however, PE is known to be a cause for wheezing, nevertheless I will treat her w/ DuoNeb aerosols and put her on short term corticosteroids. Dr. Voss indicated to me that she thinks she has pneumonia as well although she has not had a fever and no leukocytosis (3) Right ventricular dilation: Status: Acute Assessment and plan: I agree w/ Dr. 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 I do not believe her to be volume overloaded. However we need to be cautious about fluids to avoid overload of RV preload. Until she is taking po well I will use judicious fluids to maintain adequate urine output and treat prerenal azotemia. (4) Sleep apnea: Status: Acute Assessment and plan: patient needs outpatient PSG to document her JON. For now we will treat her hypoxemia w/ high flow nasal cannula. I would consider BIPAP to treat both her hypercapnea and her hypoxemia but she did not tolerate this last night while in the ER probably d/t her PE. Qualifiers: Sleep apnea type: unspecified type Qualified Code(s): G47.30 - Sleep apnea, unspecified (5) DAVEY (acute kidney injury): Status: Acute Assessment and plan: unclear to the etiology. await renal US but she is having good UO and her creatinine is improving. May be d/t dehydration and ATN or may be d/t vascular congestion from her PE. (6) Anemia: Status: Chronic Assessment and plan: stable hemogram. stool heme negative last night. cont. protonix GI protection. Qualifiers: Anemia type: unspecified type Qualified Code(s): D64.9 - Anemia, unspecified (7) Restless leg syndrome: Status: Acute (8) Transaminitis: Status: Acute Assessment and plan: possible shock liver from the PE but other etiologies including hepatitis have not been ruled out (also consider medication induced). await abdominal US results to rule out structural changes, ie. cirrhosis or HESS. (9) Right leg DVT: Status: Ruled-out Assessment and plan: US of her legs last night was difficult however, I did see noncompressible vein on the right proximal femoral system but this was not confirmed on todays venous duplex according to Dr. Voss. At this point she feels that this was an unprovoked PE and patient should be on lifetime anticoagulation Qualifiers: Affected thrombotic vein of extremity: femoral Chronicity: acute Qualified Code(s): I82.411 - Acute embolism and thrombosis of right femoral vein Subjective Subjective Interval history since last seen: ICU d#2/hosp d#2. Reason for MICU stay: submassive bilateral pulmonary embolism, DAVEY, acute liver injury. Patient is somnolent; snoring but arouseable, she is oriented and asking for food. If she is able to remain awake long enough to eat and she is able to drink adequately then I think that her iv fluids can be stopped. (they were stopped by the natural science curator however, the patient is not volume overloaded and in fact when accounting for insensible losses she is only even or negative fluid balance). I have restarted her iv fluids at low rate and put a limit of one liter. Patient denies any chest pain or pressure and no dyspnea. She is hungry. Exam Narrative Exam Narrative: MOrbidly obese female who is somnolent and snoring but awakens w/ light tactile stimulation and calling her name. She knows that she is in the hospital but has poor insight as to the reason why she is here. She thinks her whole reason for being here is she had numbness of her left arm. I asked her ab out recalling having blood clots in her lungs and she indicated oh yeah. HEENT: remarkable for Mallampati class 4 oropharyngeal airway; she has large tongue and uvula and even w/ voluntary opening, I can not see her down to her glottis Neck: obese, short, no overt JVD, normal carotid pulses Heart: regular rate and rhythm w/o murmur or rub or gallops; apical impulse not displaced Lungs: diffuse bilateral wheezing Abdomen: obese, soft, nontender, no bruits, normal bowel sounds and no discernible masses or hepatomegaly Legs: obese, no calf or thigh tenderness, she has tattoos on her legs; normal pedal pulses Neuro/psych: somnolent but awakens easily; no focal motor deficits, she still claims to have numb feeling over her left forearm but still has feeling to noxious stimulation and normal motor function; ?radiculopathy/peripheral neuropathy Objective Last Vital Signs Temp 36.6 C 11/28/20 08:30 Pulse 81 11/28/20 09:02 Resp 10 L 11/28/20 09:02 BP 91/57 L 11/28/20 09:02 Pulse Ox 96 11/28/20 09:02 Laboratory Results - last 24 hr 11/27/20 11/27/20 11/27/20 12:25 12:25 12:25 WBC 8.55 RBC 3.76 L Hgb 9.8 L Hct 33.9 L MCV 90.2 MCH 26.1 L MCHC 28.9 L RDW 18.5 H Plt Count 281 MPV 11.0 Immature Gran % 0.9 Neutrophils % 73.7 Lymphocytes % 17.0 Monocytes % 7.3 Eosinophils % 0.6 Basophils % 0.5 Nucleated RBC % 0 Absolute Neutrophils 6.31 Absolute Lymphocytes 1.45 Absolute Monocytes 0.62 Absolute Eosinophils 0.05 Absolute Basophils 0.04 PT INR APTT VBG pH 7.26 L VBG pCO2 63 H* VBG pO2 31 VBG HCO3 28 VBG Total CO2 27 VBG O2 Saturation 45 VBG Base Excess 1 VBG Lactate Sodium Potassium Chloride Carbon Dioxide Anion Gap BUN Creatinine Estimated GFR/1.73 m2 Glucose Calcium Magnesium Total Bilirubin AST ALT Alkaline Phosphatase Troponin I NT-Pro-B Natriuret Pep Total Protein Albumin COVID-19 Source Nasal/Nares SARS-CoV-2 (PCR) Negative Patient ABO/Rh Antibody Screen 11/27/20 11/27/20 11/27/20 12:25 12:25 15:11 WBC RBC Hgb Hct MCV MCH MCHC RDW Plt Count MPV Immature Gran % Neutrophils % Lymphocytes % Monocytes % Eosinophils % Basophils % Nucleated RBC % Absolute Neutrophils Absolute Lymphocytes Absolute Monocytes Absolute Eosinophils Absolute Basophils PT 11.3 H INR 1.1 APTT 26.2 VBG pH VBG pCO2 VBG pO2 VBG HCO3 VBG Total CO2 VBG O2 Saturation VBG Base Excess VBG Lactate Sodium 139 Potassium 4.4 Chloride 101 Carbon Dioxide 29.7 Anion Gap 8.3 BUN 26 H Creatinine 2.5 H Estimated GFR/1.73 m2 20.47 Glucose 148 H Calcium 8.3 L Magnesium 2.2 Total Bilirubin 0.8 AST 106 H ALT 109 H Alkaline Phosphatase 124 H Troponin I 0.27 H* Cancelled NT-Pro-B Natriuret Pep 44287 H Total Protein 7.6 Albumin 3.2 L COVID-19 Source SARS-CoV-2 (PCR) Patient ABO/Rh Antibody Screen 11/27/20 11/27/20 11/27/20 21:30 21:30 21:30 WBC RBC Hgb Hct MCV MCH MCHC RDW Plt Count MPV Immature Gran % Neutrophils % Lymphocytes % Monocytes % Eosinophils % Basophils % Nucleated RBC % Absolute Neutrophils Absolute Lymphocytes Absolute Monocytes Absolute Eosinophils Absolute Basophils PT INR APTT VBG pH VBG pCO2 VBG pO2 VBG HCO3 VBG Total CO2 VBG O2 Saturation VBG Base Excess VBG Lactate 1.4 Sodium Potassium Chloride Carbon Dioxide Anion Gap BUN Creatinine Estimated GFR/1.73 m2 Glucose Calcium Magnesium Total Bilirubin AST ALT Alkaline Phosphatase Troponin I 0.36 H* NT-Pro-B Natriuret Pep Total Protein Albumin COVID-19 Source SARS-CoV-2 (PCR) Patient ABO/Rh A Positive Antibody Screen NEGATIVE 11/27/20 11/28/20 11/28/20 21:50 05:00 05:00 WBC RBC Hgb Hct MCV MCH MCHC RDW Plt Count MPV Immature Gran % Neutrophils % Lymphocytes % Monocytes % Eosinophils % Basophils % Nucleated RBC % Absolute Neutrophils Absolute Lymphocytes Absolute Monocytes Absolute Eosinophils Absolute Basophils PT INR APTT 84.0 H* D 52.8 H D VBG pH VBG pCO2 VBG pO2 VBG HCO3 VBG Total CO2 VBG O2 Saturation VBG Base Excess VBG Lactate Sodium Potassium Chloride Carbon Dioxide Anion Gap BUN Creatinine Estimated GFR/1.73 m2 Glucose Calcium Magnesium Total Bilirubin AST ALT Alkaline Phosphatase Troponin I 0.34 H* NT-Pro-B Natriuret Pep Total Protein Albumin COVID-19 Source SARS-CoV-2 (PCR) Patient ABO/Rh Antibody Screen 11/28/20 11/28/20 05:00 05:00 WBC 10.22 RBC 3.75 L Hgb 9.7 L Hct 33.7 L MCV 89.9 MCH 25.9 L MCHC 28.8 L RDW 18.3 H Plt Count 281 MPV 10.6 Immature Gran % 1.2 Neutrophils % 83.9 Lymphocytes % 9.5 Monocytes % 5.2 Eosinophils % 0.0 Basophils % 0.2 Nucleated RBC % 0 Absolute Neutrophils 8.58 H Absolute Lymphocytes 0.97 L Absolute Monocytes 0.53 Absolute Eosinophils 0.00 Absolute Basophils 0.02 PT INR APTT VBG pH VBG pCO2 VBG pO2 VBG HCO3 VBG Total CO2 VBG O2 Saturation VBG Base Excess VBG Lactate Sodium 141 Potassium 5.0 Chloride 106 Carbon Dioxide 28.9 Anion Gap 6.1 BUN 21 H Creatinine 1.4 H D Estimated GFR/1.73 m2 39.97 Glucose 171 H Calcium 8.4 L Magnesium Total Bilirubin 0.5 AST 88 H ALT 120 H Alkaline Phosphatase 118 H Troponin I NT-Pro-B Natriuret Pep Total Protein 7.4 Albumin 3.1 L COVID-19 Source SARS-CoV-2 (PCR) Patient ABO/Rh Antibody Screen Reviewed Pertinent PMH: Yes Objective Narrative Objective Narrative: morning labs reviewed. She has a stable anemia w/ HB 9 gm and she has recovering renal insufficiency. Venous duplex study and abdominal US were done but no results yet. Echo is not available today.
--- NOTE | 2020-11-28 13:38 | DI.US_ITS ---
Exam(s) US EXTREMITY VENOUS BI EXAM: US EXTREMITY VENOUS BI CLINICAL HISTORY: PE workup. TECHNIQUE: Bilateral lower extremity venous ultrasound performed using grayscale, color-flow, and sp ectral Doppler analysis. COMPARISON: No exams were available for comparison FINDINGS: The bilateral common femoral, femoral and popliteal veins demonstrate normal compressibility, augment ation, and color Doppler. The posterior tibial veins are patent. The saphenofemoral junctions are unr emarkable. There is no evidence of a Ly's cyst. The soft tissues are unremarkable. IMPRESSION: Right: Negative for DVT Left: Negative for DVT DATA REPOSITORY:
[2020-11-28 13:53] LABS: C-Reactive Protein 9.03 mg/dL (0.0-0.3)
[2020-11-28] MEDS: methylPREDNISolone SUCC 125 MG VIAL 60 MG IVP ×2 (13:58→21:25)
[2020-11-28] MEDS: Lactated Ringers 1,000 ML 65 ML IV (14:03)
[2020-11-28 14:30] LABS: Procalcitonin 0.1 ng/mL
[2020-11-28 17:02] LABS: Troponin I 0.29 ng/mL (<0.06)
[2020-11-28] MEDS: Lidocaine 1% Multi-Dose 50 ML VIAL (18:08)
[2020-11-28] MEDS: Docusate Sodium 100 MG CAP PO (18:14)
--- NOTE | 2020-11-28 18:14 | W.ANESVAS ---
Midline Placement Date Performed: 11/28/20 Procedure Time: 17:30 Requesting Provider: Arun Barrett Procedure Location: Intensive Care Unit Sedation Given (Indicate Dose Given): No Sedation given Patient Mental Status: Awake Sterility: Hand Hygiene, Surgical Cap, Surgical Mask, Sterile Gloves and Chlorhexidine Laterality: Left Insertion Site: Other (Forearm) Midline Device: PowerGlide Pro 20G Catheter Length: 10 cm Midline Procedure Procedure: 1% Lidocaine to skin and subcutaneous tissue with 25g needle, Vessel accessed with catheter over needle, Guidewire placed with ease, Catheter placed without resistance and Guidewire removed Dressing: Tegaderm Applied Blood Return: Present Flushes: Easily Ultrasound: Sterile probe cover and gel used Ultrasound Image Saved?: No Number of Attempts (See previous attempts in note section): 2 Procedure Tolerated: No Complications and Patient tolerated well Procedure Outcome: Successful Procedure Comment:: Pt. with difficult IV access. Requested to place midline or PIV. 1st attempt left brachial without success. Final attempt left forearm. Catheter in forearm and not in any joints. Performed By: Leonides Tesfaye
[2020-11-28] MEDS: rOPINIRole 0.5 MG TAB 3 MG PO (20:54)
[2020-11-29] VITALS (70 sets, daily range): BP systolic 98–142; BP diastolic 51–97; PULSE 61–97; RESP 9–26; TEMP 31–37; O2SAT 87–100
[2020-11-29] MEDS: Normal Saline Flush 10 ML SYR IVP ×3 (06:03→13:19)
[2020-11-29] MEDS: methylPREDNISolone SUCC 125 MG VIAL 60 MG IVP ×3 (06:03→22:02)
[2020-11-29 06:50] LABS: Absolute Eosinophil Count 0.01 10^3/uL (0.0-0.7); Basophils % 0.2; Eosinophils % 0.1; HCT 32.6 % (36.0-46.0); HGB 9.3 g/dL (11.2-15.7); Immature Grans % 2.4; Lymphocytes % 6.3; MCH 26.1 pg (27.0-33.0); MCHC 28.5 % (32.0-36.0); MCV 91.6 fL (80-95); MPV 10.9 fL (8.0-11.0); Monocytes % 2.8; Neutrophils % 88.2; Nucleated RBC 0 %; Platelet Count 311 10^3/uL (130-400); RBC 3.56 10^6/uL (3.93-5.22); RDW 18.2 % (11.7-14.6); RDW-SD 60.9 fL
[2020-11-29 06:51] LABS: Absolute Basophil Count 0.02 10^3/uL (0.0-0.2); Absolute Lymphocyte Count 0.77 10^3/uL (1.2-3.4); Absolute Monocyte Count 0.34 10^3/uL (0.1-0.8); Absolute Neutrophil Count 10.85 10^3/uL (1.2-6.7)
[2020-11-29 07:04] LABS: PTT Activated 51.1 sec (21.0-27.5)
[2020-11-29 08:04] LABS: ALT 127 U/L (14-59); AST 55 U/L (15-37); Alkaline Phosphatase 115 U/L (46-116); BUN 25 mg/dL (7-18); Bilirubin, Total 0.4 mg/dL (0.2-1.0); CREATININE 1.2 mg/dL (0.55-1.02); Calcium 8.9 mg/dL (8.5-10.1); Chloride 105 mmol/L (98-107); Estimated GFR 47.75 (mL/min/1.73m2); Glucose 168 mg/dL (74-106); NT-proBNP 2542 pg/mL (<300); Potassium 5.5 mmol/L (3.5-5.1); Sodium 137 mmol/L (136-145); Total Protein 7.5 g/dL (6.4-8.2)
[2020-11-29 08:10] LABS: Troponin I 0.23 ng/mL (<0.06)
[2020-11-29] MEDS: cefTRIAXone 2 GM/50 ML BAG IVPB (09:04)
[2020-11-29] MEDS: Pantoprazole 40 MG VIAL IVP ×2 (09:05→20:26)
[2020-11-29] MEDS: Docusate Sodium 100 MG CAP PO ×3 (09:08→20:24)
[2020-11-29] MEDS: DOXYCYCLINE 100 MG in Normal Saline 100 ML IVPB ×2 (09:57→22:21)
[2020-11-29] MEDS: Rivaroxaban 15 MG TABLET PO ×2 (11:57→20:24)
[2020-11-29] MEDS: MODAFINIL 200 MG TAB PO (16:26)
--- NOTE | 2020-11-29 17:04 | PGE_ITS ---
Date of Service Date of service: 11/29/20 Time of Service: 17:04 Assessment and Plan Assessment and plan (1) Bilateral pulmonary embolism: Status: Acute Assessment and plan: D/C heparin drip and begin Xarelto for AC. Supplemental oxygen demands have decreased; now off high flow NC and stable on 3L per NC. (2) Bronchospasm, acute: Status: Acute Assessment and plan: Cont DuoNeb aerosols and put her on short term corticosteroids. Dr. 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 I do not believe her to be volume overloaded. However we need to be cautious about fluids to avoid overload of RV preload. Now off supplemental fluids with good po intake. (4) Sleep apnea: Status: Acute Assessment and plan: Does not use CPAP; finds her face mask uncomfortable. Will encourage exploration of alternative apparatus with outpt f/u. Start provigil 200mg daily d/t excessive daytime somnolence. Qualifiers: Sleep apnea type: unspecified type Qualified Code(s): G47.30 - Sleep apnea, unspecified (5) DAVEY (acute kidney injury): Status: Acute Assessment and plan: Renal function improving with creatinine now 1.2 Oral hydration. Monitor (6) Anemia: Status: Chronic Assessment and plan: Hgb 13.1 last Jan ; presented with HGB 9.8; now 9.3. stool heme negative. cont. protonix GI protection. Qualifiers: Anemia type: unspecified type Qualified Code(s): D64.9 - Anemia, unspecified (7) Restless leg syndrome: Status: Acute Assessment and plan: Cont Ropinorol (8) Transaminitis: Status: Acute Assessment and plan: possible shock liver from the PE but other etiologies including hepatitis have not been ruled out (also consider medication induced). Abdominal US showed hepatomegaly and hepatic steatosis. LFTs improving. Subjective Subjective Patient reports: no new complaints, feels better, tolerating a regular diet and afebrile Interval history since last seen: Pt continues to sleep much of the time. No CP/palpitations. Exam Const General: no acute distress Nutritional Appearance: obese Orientation: alert HENNE Head: normal to inspection and normocephalic Ears: external ears normal General nose exam: external nose normal and nasal mucous membranes and t urbinates normal Face and sinus: sinuses nontender Mouth: oropharynx normal and moist mucous membranes Teeth and gingiva: dentition normal Eyes General: appearance normal, both eyes and all related structures Pupils: PERRL EOM: EOM intact bilaterally Neck Neck: normal visual inspection and no lymphadenopathy Chest Chest: normal inspection of the chest Resp Effort & Inspection: normal respiratory effort and no audible wheezes Auscultation: clear to auscultation bilaterally, diminished lung sounds, no rales, no rhonchi and no wheezes (diffuse and bilateral) Cardio Rate: regular rate Rhythm: regular rhythm Heart Sounds: S1 normal, S2 normal and no murmurs Pulses: radial pulses present bilaterally GI Inspection: normal to inspection Palpation: soft Skin General skin exam: no rashes or lesions noted and elasticity normal Neuro General: patient alert, patient awake and patient oriented x3 Extrem General: normal to inspection, no clubbing, no cyanosis and edema (to shins) Laterality: bilateral Psych Mental Status: mental status grossly normal Affect: normal affect Attitude: cooperative Objective Last Vital Signs Temp 36.8 C 11/29/20 15:37 Pulse 61 11/29/20 15:37 Resp 16 11/29/20 15:37 BP 100/69 11/29/20 15:37 Pulse Ox 95 11/29/20 13:25 Laboratory Results - last 24 hr 11/29/20 11/29/20 11/29/20 06:25 06:25 07:30 WBC 12.30 H RBC 3.56 L Hgb 9.3 L Hct 32.6 L MCV 91.6 MCH 26.1 L MCHC 28.5 L RDW 18.2 H Plt Count 311 MPV 10.9 Immature Gran % 2.4 Neutrophils % 88.2 Lymphocytes % 6.3 Monocytes % 2.8 Eosinophils % 0.1 Basophils % 0.2 Nucleated RBC % 0 Absolute Neutrophils 10.85 H Absolute Lymphocytes 0.77 L Absolute Monocytes 0.34 Absolute Eosinophils 0.01 Absolute Basophils 0.02 APTT 51.1 H Sodium 137 Potassium 5.5 H Chloride 105 Carbon Dioxide 31.0 Anion Gap 1.0 L BUN 25 H Creatinine 1.2 H Estimated GFR/1.73 m2 47.75 Glucose 168 H Calcium 8.9 Total Bilirubin 0.4 AST 55 H ALT 127 H Alkaline Phosphatase 115 Troponin I 0.23 H* NT-Pro-B Natriuret Pep 2542 H Total Protein 7.5 Albumin 3.0 L
[2020-11-29] MEDS: Pregabalin 100 MG CAP PO (20:23)
[2020-11-29] MEDS: rOPINIRole 0.5 MG TAB 3 MG PO (21:59)
[2020-11-30 00:02] VITALS: PULSE 74
[2020-11-30 03:26] VITALS: BP 122/87; PULSE 93; RESP 18; TEMP 36.4; O2SAT 93
[2020-11-30] MEDS: methylPREDNISolone SUCC 125 MG VIAL 60 MG IVP (05:20)
[2020-11-30] MEDS: Normal Saline Flush 10 ML SYR IVP (05:20)
[2020-11-30 06:55] VITALS: BP 113/67; PULSE 85; RESP 22; TEMP 37; O2SAT 92
[2020-11-30 07:32] LABS: Abs Immature Grans 0.16 10^3/uL (0.0-0.06); Absolute Basophil Count 0.01 10^3/uL (0.0-0.2); Absolute Lymphocyte Count 0.97 10^3/uL (1.2-3.4); Absolute Monocyte Count 0.42 10^3/uL (0.1-0.8); Basophils % 0.1; HCT 32.2 % (36.0-46.0); HGB 9.8 g/dL (11.2-15.7); Immature Grans % 1.4; Lymphocytes % 8.4; MCH 25.9 pg (27.0-33.0); MCHC 30.4 % (32.0-36.0); MPV 11.2 fL (8.0-11.0); Monocytes % 3.6; Neutrophils % 86.5; Nucleated RBC 0 %; Platelet Count 335 10^3/uL (130-400); RBC 3.79 10^6/uL (3.93-5.22); RDW 17.8 % (11.7-14.6); RDW-SD 55.1 fL
[2020-11-30 07:33] LABS: Absolute Neutrophil Count 10.03 10^3/uL (1.2-6.7)
[2020-11-30 07:42] VITALS: O2SAT 95
[2020-11-30 07:44] LABS: Anion Gap 5.5 mmol/L (3-11); BUN 28 mg/dL (7-18); CO2 29.5 mmol/L (21.0-32.0); CREATININE 1.1 mg/dL (0.55-1.02); Calcium 9.4 mg/dL (8.5-10.1); Chloride 104 mmol/L (98-107); Estimated GFR 52.79 (mL/min/1.73m2); Glucose 179 mg/dL (74-106); Potassium 4.8 mmol/L (3.5-5.1); Sodium 139 mmol/L (136-145)
[2020-11-30 08:06] LABS: Procalcitonin < 0.1 ng/mL
[2020-11-30] MEDS: Pantoprazole 40 MG VIAL IVP (08:27)
[2020-11-30] MEDS: Docusate Sodium 100 MG CAP PO (08:27)
[2020-11-30] MEDS: MODAFINIL 200 MG TAB PO (08:27)
[2020-11-30] MEDS: Rivaroxaban 15 MG TABLET PO (08:27)
[2020-11-30] MEDS: Pregabalin 100 MG CAP PO (08:27)
[2020-11-30 09:05] VITALS: PULSE 72
--- NOTE | 2020-11-30 09:23 | W.PM.DS.N ---
Date of service: 11/30/20 Time of Service: 09:23 DS: Diagnosis Discharge Diagnosis (1) Bilateral pulmonary embolism: Status: Acute (2) Bronchospasm, acute: Status: Acute (3) Right ventricular dilation: Status: Acute (4) Sleep apnea: Status: Acute (5) DAVEY (acute kidney injury): Status: Acute (6) Anemia: Status: Chronic (7) Restless leg syndrome: Status: Acute (8) Transaminitis: Status: Acute Discharge Plan Disposition Patient Disposition: HOME Condition: Stable Discharge Details Reason For Visit: PE with Elevated Troponin, DAVEY Admit Date/Time: 11/27/20 14:18 Admit Provider: Arun Barrett Attending Provider: Arun Barrett Primary Care Provider: Dioni Lozaad Hospital Course Hospital Course: Patient is a 50-year-old female with morbid obesity and smoking history of 1/2 pack/day for the last 15 years who presented acute dyspnea with chest pain. Patient states that the night before admission she went to bed and then was experiencing right hand and arm numbness; her boyfriend noticed that she was slurring her speech. Patient had not been consuming any alcohol and had not used any narcotic drugs although she is on a number of muscle relaxants, pregabalin and ropinirole chronically for restless leg syndrome and low back pain. Patient went to bed and awoke in the morning with shortness of breath and nonproductive cough with no fever or chills. She presented to the emergency department via EMS because of progressive dyspnea throughout the day. On arrival to the emergency room her oxygen saturation was 85% on room air. ER began a work-up for possible COPD exacerbation versus pneumonia versus pulmonary embolus. CTA chest demonstrated bilateral multilobar PE beginning just distal to the main pulmonary arteries. Reportedly no pulmonary infarcts and no right heart strain (Dr Voss, pulmonogy later felt she did have infarcts). EKG demonstrated sinus rhythm 93 bpm w/ S1Q3T3 pattern and T wave inversion in right precordial leads V1-V3. Labs were pertinent for DAVEY (BUN 26, creatinine 2.5; baseline was normal at 15 and 1.0 in August); elevated troponin I 0.27 and elevated BNP 16,700. Transaminases are mildly elevated (AST 106, ALT 109, alkaline phos. 124 but normal bilirubin). CBC demonstrates anemia Hb 9.8 gm, normal WBC and platelets. Protime 11.3 w/ INR 1.1 and normal aptt 26. Patient was treated in the ER initially w/ DuoNebs and solumedrol and saline bolus. However when the CTA demonstrated bilateral PE, she was given UFH bolus 8000 units and begun on drip of 1800 units/hr. She was admitted to the MICU on oxygen at 10 lpm oxy mask but has required high flow nasal cannula at 45 LPM to maintain her SPO2 in the 88 to 91% range. Patient has demonstrated sleep apnea while in the ER w/ hypopnea and apneic spells. She was transiently put on BIPAP but when she dropped her SBP in the 50's to 70's she was taken off the BIPAP. That was when she was given the saline bolus of 1000 mL. Her BP since arrival to the MICU were acceptable running low 100's to 110's. HR in the 80's sinus rhythm. There was an intention of giving TPA, however, she was too somnolent to give informed consent. Venous studies of bilateral lower extremities indicated no DVT. Bedside POCUS exam by Dr Voss indicated RV dysfunction; felt to be acute (pulmonary emboli) on chronic (tobacco abuse and sleep apnea). Gradually her respiratory status improved. She did not tolerate the BiPAP mask and it was not used any further during the course of this admission. She has been intolerant of various CPAP equipment/masks as well. She was eventually weaned to RA. Heparin drip stopped and Apixaban initiated. Pulmonary medicine consulted and was concerned with a possible underlying PNA. No elevated WBC count initially and no fevers. Rocephin and Doxycycline initiated. Her WBC count did increase to 12, then 11.6; likely related to the IV steroids administered. Given her untreated sleep apnea and significant daytime somnolence, she agreed to initiating provigil. It was given the day prior to d/c and she did notice an improvment in her level of daytime alertness. She felt well on the day of discharge; essentially back to her baseline. Home to finish course of doxycycline. Cont Xarelto 15mg BID for 21 days then will obtain new script from PCP for 20mg daily. She should continue to be encouraged to stop tobacco use. F/U with PCP in 1 week. Referral made to Pulmonary medicine. LAUREN planned in 3 months. Home Meds and New Rx's Prescriptions: New modafinil 200 mg Tablet 200 mg PO QAM Qty: 30 RF: 0 Xarelto 15 mg tablet 15 mg PO BID Qty: 40 RF: 0 doxycycline hyclate [Morgidox] 100 mg capsule 100 mg PO BID Qty: 10 RF: 0 Continued cetirizine 10 mg tablet 10 mg DAILY RF: 0 spironolactone 25 mg tablet 25 mg DAILY RF: 0 omeprazole 20 mg capsule,delayed release(DR/EC) 20 mg DAILY RF: 0 pregabalin 300 mg capsule 300 mg BID RF: 0 ropinirole 12 mg Tablet Extended Release 24 Hr 12 mg PO .QHS RF: 0 baclofen 5 mg tablet 5 mg PO TID PRN (Reason: muscle spasm) Qty: 10 RF: 0 Discharge Instructions Instructions: Pulmonary Embolism (DC) Stand Alone Forms: Nursing Discharge Form Referrals: Dioni Lozada [Primary Care Provider] - (Please call Tuesday to make a follow up appointment for 1 week ) Polly Voss MD [ [facility] STAFF PHYSICIAN] - (Please call Tuesday to make an appointment for Pulmonary emboli, pulmonary infarction, JON, obesity hypoventilation syndrome) Activity:: Activity as Tolerated Equipment/Supplies:: No Equipment Needed Diet:: Heart Healthy Discharge Orders Discharge Orders: Discharge Order (Routine); Ordered 11/30/20 Ordered By: Rafael Muir Discharge Data Discharge Date/Time-TO BE ENTERED AT DEPARTURE: 11/30/20 11:02 DS: Summary Time Spent with Patient providing and/or coordinating discharge services: Greater than 30 minutes Status at Discharge Functional status at discharge: independent ambulation Overall status at discharge: patient is back to baseline Mental Status: mental status grossly normal Speech and Movement: speech and movement normal Mood: congruent mood Affect: normal affect Exam Const General: cooperative and no acute distress Nutritional Appearance: obese Orientation: alert and oriented x3 Resp Effort & Inspection: normal respiratory effort Auscultation: diminished lung sounds and rhonchi Cardio Rate: regular rate Rhythm: regular rhythm Heart Sounds: S1 normal and S2 normal GI Inspection: obesity Palpation: soft and nontender Extrem General: no pedal edema and no calf tenderness Psych Appearance: grossly normal Mental Status: mental status grossly normal Speech and Movement: speech and movement normal Mood: congruent mood Affect: normal affect DS: Data Vitals/I&O Vitals and I&O: Vital Signs Temperature 37.0 C 11/30/20 06:55 Temperature Source Tympanic 11/30/20 06:55 Pulse 72 11/30/20 09:05 Pulse Rhythm Regular 11/30/20 04:00 Pulse 74 11/29/20 13:30 Respiratory Rate 22 11/30/20 06:55 Respiratory Effort 11/30/20 04:00 Respiratory Depth Shallow 11/30/20 04:00 Respiratory Pattern Normal 11/30/20 04:00 Blood Pressure 113/67 11/30/20 06:55 Blood Pressure Mean 104 11/29/20 09:03 Blood Pressure Position Supine 11/29/20 07:30 Pulse Oximetry 95 11/30/20 07:42 Oxygen Delivery Method Room Air 11/30/20 07:42 Oxygen Flow Rate 0 11/30/20 07:42 Fraction of Inspired Oxygen (FIO2) 25 11/29/20 11:40 Pain Level 0 11/30/20 06:55 Comment 11/29/20 15:37 Intake & Output 11/29/20 11/29/20 11/30/20 11:59 23:59 11:59 Intake Total 1132.292 / 1772.292 640 / 1772.292 Output Total 800 / 1600 800 / 1600 Balance 332.292 / 172.292 -160 / 172.292 Weight 156.1 kg 156.1 kg 154.675 kg Intake: IV 1132.292 / 1132.292 Oral 640 / 640 Output: Urine 800 / 1600 800 / 1600 Other: Urine Color Light Celia Yellow Straw Urine Appearance Clear Clear Cloudy Urine Odor Normal Strong Comment Catheter removed. Patient tolerated well. Void x1 (moderate amount) in the bedside commode. Urine mixed with stool; RN unable to determine urine amount. Stool Size Moderate Small Stool Characteristics Formed Soft Formed Brown Voiding Methods Bedside Commode Data Completed and Pending Labs on day of discharge: Labs from last 24 hours 11/30/20 11/30/20 11/30/20 07:30 07:20 07:20 WBC 11.60 H RBC 3.79 L Hgb 9.8 L Hct 32.2 L MCV 85.0 MCH 25.9 L MCHC 30.4 L RDW 17.8 H Plt Count 335 MPV 11.2 H Immature Gran % 1.4 Neutrophils % 86.5 Lymphocytes % 8.4 Monocytes % 3.6 Eosinophils % 0.0 Basophils % 0.1 Nucleated RBC % 0 Absolute Neutrophils 10.03 H Absolute Lymphocytes 0.97 L Absolute Monocytes 0.42 Absolute Eosinophils 0.00 Absolute Basophils 0.01 Sodium 139 Potassium 4.8 Chloride 104 Carbon Dioxide 29.5 Anion Gap 5.5 BUN 28 H Creatinine 1.1 H Estimated GFR/1.73 m2 52.79 Glucose 179 H Calcium 9.4 Procalcitonin Ur Strep pneumoniae Ag Pending 11/30/20 07:20 WBC RBC Hgb Hct MCV MCH MCHC RDW Plt Count MPV Immature Gran % Neutrophils % Lymphocytes % Monocytes % Eosinophils % Basophils % Nucleated RBC % Absolute Neutrophils Absolute Lymphocytes Absolute Monocytes Absolute Eosinophils Absolute Basophils Sodium Potassium Chloride Carbon Dioxide Anion Gap BUN Creatinine Estimated GFR/1.73 m2 Glucose Calcium Procalcitonin < 0.1 Ur Strep pneumoniae Ag Preliminary micro results at discharge 11/27/20 14:05 Blood Culture - Preliminary Blood NO GROWTH 48 HOURS 11/27/20 13:55 Blood Culture - Preliminary Blood NO GROWTH 48 HOURS PFSH Medical History Chronic low back pain Peripheral neuropathy Restless leg syndrome Smoking addiction currently 1/2 ppd; total of 12 to 15 yrs Surgical History S/P knee surgery patient has had multiple bilateral knee surgeries; 12 in total S/P tubal ligation Status post total right knee replacement Social History Smoking/Tobacco Use Status: Current every day Tobacco Type: cigarettes Smoking packs per day: 0.5 Smoking cigarettes per day: 10.0 Years smoked: 15 Smoking pack-years: 7.50 Smoking risk assessment performed?: Yes Alcohol Intake: never Drug use: Never Substance use type: does not use Household members: significant other Do you feel safe at home: Yes Do you feel safe in your relationship?: Yes
[2020-12-01 13:16] LABS: Hepatitis A Antibody IgM Negative (Negative); Hepatitis B Core Antibody Negative (Negative); Hepatitis B surface Ag Negative (Negative); Hepatitis C Ab w Rflx HCV PCR Negative (Negative)
[2020-12-01 23:31] LABS: Streptococcus Pneumoniae Ag, U Negative (Negative)
== END 2020-11-30 11:02 | disposition home or self-care (01) | DRG 175 ==
LOC: ER 14:42 → ICU 16:57 → MS 11-29 13:49
PROVIDERS: Family Medicine; Admitting Provider Internal Medicine; Emergency Provider Emergency Medicine; PCP Physician Assistant; Visit Provider Internal Medicine
DX: I26.99 Other pulmonary embolism without acute cor pulmonale (principal); J96.02 Acute respiratory failure with hypercapnia; J96.01 Acute respiratory failure with hypoxia; Z68.43 Body mass index [BMI] 50.0-59.9, adult; N17.9 Acute kidney failure, unspecified; F17.210 Nicotine dependence, cigarettes, uncomplicated; I51.89 Other ill-defined heart diseases; I95.9 Hypotension, unspecified; E66.01 Morbid (severe) obesity due to excess calories; G89.29 Other chronic pain; M54.5 Low back pain; G62.9 Polyneuropathy, unspecified; G25.81 Restless legs syndrome; Z96.651 Presence of right artificial knee joint; Z20.822 Contact with and (suspected) exposure to COVID-19; D64.9 Anemia, unspecified; R74.01 Elevation of levels of liver transaminase levels; G47.33 Obstructive sleep apnea (adult) (pediatric); R41.0 Disorientation, unspecified; J98.01 Acute bronchospasm; I27.20 Pulmonary hypertension, unspecified; J44.9 Chronic obstructive pulmonary disease, unspecified
CPT/HCPCS: 36415; 36416; 71275; 76770; 80048; 80053; 82805; 82962; 84145; 86704; 86709; 86803; 86850; 86900; 86901; 87040; 87340; 87635; 93005; 94640; 96365; 96366; 96375; 96376; 99285; 70450; 76700; 83605; 83735; 83880; 84484; 85025; 85610; 85730; 86140; 87899; 93010; 93970; 99233; 99239; 99291; J2930; J7620